=== PATIENT | female | born 1955 | race Caucasian/White ===

== ENCOUNTER → 2022-10-29 | Outpatient (CLI) | payer MEDICARE, BC ==
[2022-10-29 17:28] LABS: INR 0.9 (<1.2); Partial Thromboplastin Time 22.1 sec (22.0-30.0); Prothrombin Time 9.7 sec (9.0-12.0)
[2022-10-29 20:38] LABS: HGB 13.3 d/dL (12.0-15.0); MCH 30.3 pg (27.0-32.0); MCHC 31.7 d/dL (32.0-37.0); MCV 95.7 FL (80.0-97.0); Mean Platelet Volume 9.6 FL (9.5-12.2); NRBC Per 100 WBC 0 X 10*3/uL (0.00-0.01); Platelet Count 270 X 10*3/uL (140-440); RBC 4.39 X 10*6/uL (4.10-5.20); RDW 13.7 % (11.5-14.5)
[2022-10-30 01:52] LABS: ALT 21 U/L (8-44); AST 22 U/L (13-35); Albumin 4.7 d/dL (3.8-4.9); Albumin/Globulin Ratio 2.35 Ratio (1.60-3.17); Alkaline Phosphatase 84 U/L (41-126); BUN/Creat Ratio 16.38 Ratio (12.00-20.00); Blood Urea Nitrogen 13.1 mg/dL (9.0-27.0); Calcium 10.1 mg/dL (8.7-10.3); Carbon Dioxide 27.6 mmol/L (21.6-31.8); Chloride 104 mmol/L (96-109); Glucose 92 mg/dL (70-110); Potassium 4.5 mmol/L (3.5-5.5); Sodium 142 mmol/L (135-145); Total Bilirubin 0.3 mg/dL (0.3-1.2); Total Protein 6.7 d/dL (6.2-8.2)
[2022-10-30 01:54] LABS: Appearance,Urine Clear (Clear); Bilirubin,Urine Negative (Negative); Blood,Urine Negative (Negative); Color,Urine Yellow (Yellow); Ketones,Urine Negative (Negative); Nitrite,Urine Negative (Negative); PH, Urine 5.5; Specific Gravity,Urine 1.007 (1.001-1.030); Urobilinogen,Urine 0.2 E.U./DL
== END | disposition home or self-care (01) ==
LOC: LABPAT 15:44
PROVIDERS: ATTEND Orthopaedic Surgery
DX: Z01.812 Encounter for preprocedural laboratory examination (principal); M17.11 Unilateral primary osteoarthritis, right knee; I49.9 Cardiac arrhythmia, unspecified
CPT/HCPCS: 80053; 81003; 85027; 85610; 85730; 87070; 93005

== ENCOUNTER → 2023-04-08 | Outpatient (CLI) | payer MEDICARE, BC ==
[2023-04-08 15:59] LABS: INR 0.9 (<1.2); Partial Thromboplastin Time 22.2 sec (22.0-30.0); Prothrombin Time 9.9 sec (10.0-12.5)
[2023-04-09 02:45] LABS: ALT 17 U/L (8-44); AST 18 U/L (13-35); Albumin 4.4 g/dL (3.8-4.9); Alkaline Phosphatase 79 U/L (41-126); BUN/Creat Ratio 21.43 Ratio (12.00-20.00); Calcium 9.9 mg/dL (8.7-10.3); Carbon Dioxide 27.9 mmol/L (21.6-31.8); Chloride 102 mmol/L (96-109); Globulin 2.1 g/dL (1.6-3.3); Glucose 89 mg/dL (70-110); Potassium 4.2 mmol/L (3.5-5.5); Sodium 139 mmol/L (135-145); Total Bilirubin <0.2 mg/dL (0.3-1.2); Total Protein 6.5 g/dL (6.2-8.2)
[2023-04-09 02:49] LABS: HCT 39.5 % (37.2-46.3); HGB 12.7 g/dL (12.0-15.0); MCH 30.1 pg (27.0-32.0); MCHC 32.2 g/dL (32.0-37.0); MCV 93.6 FL (80.0-97.0); Mean Platelet Volume 9.5 FL (9.5-12.2); NRBC Per 100 WBC 0 X 10*3/uL (0.00-0.01); Platelet Count 241 X 10*3/uL (140-440); RBC 4.22 X 10*6/uL (4.10-5.20); RDW 14.6 % (11.5-14.5); WBC 6.42 X 10*3/uL (4.50-10.00)
== END | disposition home or self-care (01) ==
LOC: LABPAT 14:57
PROVIDERS: ATTEND Orthopaedic Surgery
DX: Z01.812 Encounter for preprocedural laboratory examination (principal); M17.12 Unilateral primary osteoarthritis, left knee; Z22.322 Carrier or suspected carrier of Methicillin resistant Staphylococcus aureus
CPT/HCPCS: 36415; 80053; 85027; 85610; 85730; 87070

== ENCOUNTER 2023-04-28 05:35 | Day surgery (SDC) | payer MEDICARE, BC ==
[~2023-04-28 05:35] MED LIST: TRANEXAMIC 1,000 MG/100ML-NACL 1,000 MG in SALINE 1 100ML.BAG IVPB PRN
[2023-04-28] MEDS: GABAPENTIN 300 MG CAP PO PRN (06:14)
[2023-04-28] MEDS: ACETAMINOPHEN TAB 500 MG TAB PO PRN (06:14)
[2023-04-28] MEDS: MELOXICAM 7.5 MG TAB PO PRN (06:15)
[2023-04-28] MEDS: LACTATED RINGERS 1,000 ML IV ONE (06:20)
[2023-04-28] MEDS: MIDAZOLAM 2 MG/2 ML VIAL IVP ONE ×4 (06:27→06:32)
[2023-04-28] MEDS: ONDANSETRON 4 MG/2 ML VIAL IVP ONE (06:45)
[2023-04-28] MEDS: DEXAMETHASONE SOD PHOSPHATE 4 MG/ML 1 ML VIAL IV ONE (06:45)
[2023-04-28] MEDS ORDERED: HYDROmorphone 0.5 MG/0.5 ML SYRINGE IVP PRN ×3 (07:00→07:13)
--- NOTE | 2023-04-28 07:07 | P.ANPRN ---
Procedure Note - Anesthesia - Nerve Block Performed Left Adductor Canal Infusion Time Out Performed: Yes (0630) Date of Procedure: 04/28/23 Procedure Start Time: 06:34 Procedure Stop Time: 06:49 Location of Patient: PreOp Indication: Acute Post-Operative Pain, Requested by Surgeon Sedation Type: Sedate with meaningful contact maintained Preparation: Sterile Prep, Sterile Dressing Position: Supine Catheter: Indwelling Needle Types: Pajunk Needle Gauge: 18 Ultrasound used to visualize needle placement: Yes Ultrasound used to observe medication spread: Yes Injectate: 0.5% Ropivacaine (see comment for volume) (10 ML of 0.5% ropivacaine mixed with 10 ML of preservative-free normal saline) Blood Aspirated: No Pain Paresthesia on Injection Noted: No Resistance on Injection: Normal Image Stored and Saved: Yes Events: Uneventful and Well Tolerated
--- NOTE | 2023-04-28 07:08 | P.ANPRN ---
Procedure Note - Anesthesia - Nerve Block Performed Left iPack Single Time Out Performed: Yes (0630) Date of Procedure: 04/28/23 Procedure Start Time: 06:34 Procedure Stop Time: 06:49 Location of Patient: PreOp Indication: Acute Post-Operative Pain, Requested by Surgeon Sedation Type: Sedate with meaningful contact maintained Preparation: Sterile Prep Position: Supine Catheter: None Needle Types: Pajunk Needle Gauge: 21 Ultrasound used to visualize needle placement: Yes Ultrasound used to observe medication spread: Yes Injectate: 0.5% Ropivacaine (see comment for volume) (10 ML of 0.5% ropivacaine mixed with 10 ML of preservative-free normal saline) Blood Aspirated: No Pain Paresthesia on Injection Noted: No Resistance on Injection: Normal Image Stored and Saved: Yes Events: Uneventful and Well Tolerated
[2023-04-28] MEDS ORDERED: MAGNESIUM HYDROXIDE 2,400 MG/30 ML CUP PO PRN (07:13)
[2023-04-28] MEDS ORDERED: bisacodyL 10 MG SUPP RECTAL PRN (07:13)
[2023-04-28] MEDS ORDERED: NALOXONE 0.4 MG/ML 1 ML VIAL IV PRN (07:13)
[2023-04-28] MEDS ORDERED: NA PHOS,M-B/NA PHOS,DI-BA 133 ML ENEMA RECTAL PRN (07:13)
[2023-04-28] MEDS ORDERED: PROPOFOL 10 MG/ML 20 ML VIAL IV ONE (07:24)
[2023-04-28] MEDS ORDERED: DEXAMETHASONE SOD PHOSPHATE 4 MG/ML 1 ML VIAL ONE (07:24)
[2023-04-28] MEDS ORDERED: SODIUM CHLORIDE 0.9% (PF) 10 ML VIAL ONE (07:24)
[2023-04-28] MEDS ORDERED: TRANEXAMIC 1,000 MG/100ML-NACL PREMIX BAG ONE (07:24)
[2023-04-28] MEDS ORDERED: ROPIVACAINE 5 MG/ML 30 ML VIAL ONE (07:24)
[2023-04-28] MEDS ORDERED: fentaNYL (PF) 50 MCG/ML 2 ML AMP ONE (07:24)
[2023-04-28] MEDS: ceFAZolin 1,000 MG in SODIUM CHLORIDE 0.9% 1,000 ML IRRIGATION ONE (07:29)
--- NOTE | 2023-04-28 08:42 | P.OP ---
Date of Procedure: 04/28/23 Preoperative Diagnosis: Severe osteoarthritis left knee Postoperative Diagnosis: Severe osteoarthritis left knee Procedure(s) Performed: Left total knee arthroplasty Implants: [employer] Journey II CR Oxinium cruciate retaining femoral component size 5, left [employer] Journey nonporous tibial baseplate size 3, left [employer] Journey II, XLPE CR articular insert, size 9 mm, Size 3-4, left [employer] Journey Zoe II resurfacing patellar component, oval, 29 mm All components were cemented using Palacos R bone cement The articulation is Oxinium on polyethylene Anesthesia: spinal Surgeon: Rey Chacon Ticket Agent #1: Mady Ramirez Estimated Blood Loss (ml): 50 Pathology: none sent Condition: stable Disposition: PACU Indications for Procedure: The patient's knee is end-stage, and conservative management has failed. The operation of knee replacement has been discussed at length in the office, as well as potential risks and complications. These are inclusive of, but not limited to: Infection, bleeding, scarring, discomfort, stiffness, blood vessel and nerve damage, need for further surgery, failure to relieve symptoms, persistence, recurrence, or worsening of problems, loosening, dislocation, wear, blood clot, pulmonary embolism, , gait dysfunction, stiffness, and other risks as discussed in the office. Patient elects to proceed and the consent form has been signed. Operative Findings: The operative findings are consistent with severe osteoarthritis of the left knee Description of Procedure: The patient was seen in the preoperative area, the consent was reviewed and the operative site was marked with a skin marker. The patient verified the procedure and the operative site. An adductor canal pain catheter and an iPACK block were placed by anesthesia in the preoperative area. The patient was then brought to the operating room and positioned on the operating room table in the supine position. Preoperative antibiotics and a gram of tranexamic acid were given intravenously. A spinal anesthetic was administered by the anesthesia department. Care was taken to make sure that all pressure points were a dequately padded. A tourniquet was placed on the upper thigh and the lower extremity was prepped with ChloraPrep and draped in usual sterile fashion. A universal time-out was then performed which confirmed the patient's name, surgical site, ALLERGIES, and consent. The lower extremity was then exsanguinated and tourniquet was inflated to 250 mmHg. A standard anterior midline approach to the knee was performed. The skin and subcutaneous tissue were sharply dissected down to the patellar tendon. A medial parapatellar arthrotomy was then performed. The knee was then extended, the patellar was everted, and the knee was flexed. The infra-patellar fat pad was removed in order to enhance exposure. The anterior horns of both menisci were excised, and a release was performed to the posterior medial aspect of the knee. On gross visual inspection, there was complete loss of articular cartilage in the medial and patellofemoral joint spaces. There was also significant cartilage damage in the lateral compartment. There were multiple periarticular osteophytes globally about the knee which were then removed with a Ronguer. The femoral canal was then opened with the 9.5 mm intramedullary drill. The 8 mm intramedullary millie was then inserted into the femoral canal with the distal femoral cutting guide set for 5 of valgus. The distal femoral cutting block was then pinned in place. The intramedullary millie was then removed, and the distal femur was then cut. The cutting block was then removed and the cut was checked for symmetry. The resected bone was then measured to confirm the appropriate distal femoral resection. Next, the sizing guide was then placed and set for 3 external rotation based off of the epicondylar axis and [place]'s line. Pins were then placed and the drill holes, and the femur was sized with the sizing stylus. The pins were then removed, and the sizing guide was then removed. The spikes of the appropriate size femoral block was then placed into the predrilled holes, and malleted into place. Two 45 mm pins were then placed into the fixation holes on the cutting block. An marina wing was then used to ensure there would be no notching with the anterior cut. The anterior condyles were cut without notching. The anterior chord cut was then performed, followed by the posterior cut, posterior chamfer cut, and the anterior chamfer cut. The collateral ligaments were protected during the entire process. The cutting block was then removed. Any remaining bone and osteophytes were removed from the femur with a Ronguer. Attention was then directed to the tibia. The remaining ACL was removed with a Ronguer, and the tibia was then gently subluxed forward with a large bent knee retractor. Any remaining menisci were excised. The posterior lateral corner was cauterized in order to coagulate the lateral geniculate artery. The extra medullary tibial cutting guide was then placed, set for the appropriate rotation, slope, and depth of resection. The proximal tibia cutting guide was then pinned in place. Proximal tibia was then cut and sized. A curved osteotome was then used to remove any posterior osteophytes from the distal femu r. The femoral trial was placed. A narrow saw blade was then used to remove the anterior intracondylar femoral bone. The CR notch trial was then placed. The tibial trial was placed with the appropriate-sized insert. The knee was able to fully extend and flex to 130 and was stable throughout all range of motion. The knee was then extended and the patella was everted. Patella was then measu red, and then using an osteotomy guide, the patella was cut at the appropriate level. The patellar component was sized. The patellar drill guide was placed and the patella was drilled. The patella trial was then placed. The knee was then taken through range of motion with the patella trial and the patella tracked normally using the no thumbs technique. The patella trial was then removed. The knee was then flexed and lug holes were drilled through the femoral trial and the femoral trial was then removed. The tibial was then re- exposed, and the tibial broach guide was then pinned in place after it was set for the appropriate rotation to allow for the most coverage without overhang. The tibia was then reamed and broached. The femoral canal was plugged with autologous bone. The cut surfaces of bone were then irrigated with pulsatile lavage. The knee was also irrigated with Irrisept solution. The components were then opened, the cement was mixed. Cement was placed on the backside of the femoral, tibial, and patellar components. Cement was then applied to the tibial surface and pressurized into the surface using finger pressurization technique. The tibial component was then applied and excess cement was removed after it was impacted securely noted to be flush with the cut surface. In similar fashion, the cement was applied to the cut femoral surface, pressurized and using finger pressurization the component was impacted in place. Excess cement was removed. The polyethylene spacer was then implanted and locked into position. Patellar component was then applied in a similar technique and the patellar clamp was used to hold patella in place while the cement hardened. The knee was held in full extension while the cement hardened. Once the cement had fully hardened, the knee was reinspected. Any other cement extrusion was removed the final range of motion testing showed range of motion from 0-130 with excellent stability, both medial and laterally and appropriate alignment of the leg. Patella tracked normally. After the cemented hardened, the tourniquet was released and hemostasis was obtained. A second gram of transexamic acid was given intravenously. The knee was again irrigated. The knee was again taken through range of motion and found to be stable throughout all range of motion of 0-130, and the patella tracked normally. The fascia was then closed with 0 Vicryl followed by #2 strata fix suture. The subcutaneous tissue was closed with 3-0 Vicryl and 3-0 strata fix. Exofin glue was used for the skin and placed with the knee in flexion. After the glue had dried, and Optafoam silver impregnated dressing was applied. A lightly compressive dressing was applied using web roll and [place]an[place] wrap. Patient was then transferred to the stretcher and taken to recovery room in stable condition. Sponge and needle counts were correct. The dental hygiene administrative assistant ALBERTO Bloom was required due the complexity surgery and the need for a skilled neurosurgical nurse practitioner. She assisted in positioning, draping, retraction, and closure of the wound.
[2023-04-28] MEDS: ROPIVACAINE 1,100 MG, SODIUM CHLORIDE 0.9% 500 ML 330 ML, EMPTY PAIN BALL 1 EACH MISCELLANE PRN (09:32)
--- NOTE | 2023-04-28 10:16 | XR ---
EXAMINATION TYPE: XR knee limited LT DATE OF EXAM: 04/28/2023 COMPARISON: None HISTORY: Postop left knee TECHNIQUE: 2 view left knee FINDINGS: Tibial femoral component 7 place. No acute fractures are evident. Postsurgical soft tissue changes are evident. IMPRESSION: 1. No acute fractures post left knee replacement.
[2023-04-28] MEDS: HYDROcodone/APAP 7.5-325MG 1 EACH TAB PO PRN ×2 (11:41→18:17)
[2023-04-28] MEDS: LACTATED RINGERS 1,000 ML IV SCH (11:49)
[2023-04-28] MEDS ORDERED: ALPRAZolam 0.5 MG TAB PO PRN (12:02)
[2023-04-28] MEDS: ONDANSETRON 4 MG/2 ML VIAL IVP PRN (12:51)
[2023-04-28] MEDS: SODIUM CHLORIDE 0.9% 1,000 ML IV SCH (12:51)
[2023-04-28] MEDS: HYDROmorphone 0.5 MG/0.5 ML SYRINGE IVP PRN (15:09)
--- NOTE | 2023-04-28 15:31 | P.CONS ---
History of Present Illness - Reason for Consult Consult date: 04/28/23 Medical management Requesting physician: Rey Chacon - Chief Complaint Knee surgery - History of Present Illness Very pleasant 67-year-old patient who follows with Dr. Welsh. progressive arthritis especially of the knees. outpatient failed conservative treatment including pain medications. undergone left total knee arthroplasty. Postprocedure no nausea vomiting. Some pain at operative site. Daughter is at bedside. No chest pain or shortness of breath. Review of systems: GEN.: None EYES: None HEENT: None NECK: None RESPIRATORY: None CARDIOVASCULAR: None GASTROINTESTINAL: None GENITOURINARY: None MUSCULOSKELETAL: Joint pains LYMPHATICS: None HEMATOLOGICAL: None PSYCHIATRY: None NEUROLOGICAL: None Past medical history to include: Arthritis. Anxiety. Social history: Lives with her . Takes care of him as he has Parkinson's. 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 Physical examination: VITAL SIGNS: 97.7, 84, 17, 105/60, 93% GENERAL: BMI 29.1, reclining in bed EYES: Pupils equal. Conjunctiva normal. HEENT: External appearance of nose and ears normal, oral cavity grossly normal. NECK: JVD not raised; masses not palpable. HEART: First and second heart sounds are normal; no edema. LUNGS: Respiratory rate normal; clear to auscultation. ABDOMEN: Soft, nontender, liver spleen not palpable, no masses palpable. PSYCH: Alert and oriented x3; mood and affect normal. MUSCULOSKELETAL:No Clubbing/cyanosis;muscles-grossly intact. Evidence of OA in multiple joints. Dressing over the left knee. NEUROLOGICAL: Cranial nerves grossly intact; no facial asymmetry, power and sensation grossly intact. LYMPHATICS: No lymph nodes palpable in the axilla and neck INVESTIGATIONS, reviewed in the clinical context: April 08, 2023: White count 6.4 hemoglobin 12.7 platelets 241 potassium 4.2 creatinine 0.7 Assessment and plan: -Right total knee arthroplasty Pain control. Aspirin for DVT prophylaxis -Primary osteoarthritis Tylenol as needed -Anxiety not otherwise specified Xanax when necessary Care was discussed with the patient. Questions answered. Thank you Dr. Chacon Past Medical History Past Medical History: Osteoarthritis (OA) Additional Past Medical History / Comment(s): IBS History of Any Multi-Drug Resistant Organisms: None Reported Past Surgical History: Adenoidectomy, Section, Joint Replacement, Tonsillectomy Additional Past Surgical History / Comment(s): CTR bilaterally, rt knee replaced Past Anesthesia/Blood Transfusion Reactions: No Reported Reaction Additional Past Anesthesia/Blood Transfusion Reaction / Comm: no blood transfusions. Past Psychological History: Anxiety Smoking Status: Never smoker Past Alcohol Use History: None Reported Past Drug Use History: None Reported - Past Family History Father Additional Family Medical History / Comment(s): pulmonary fibrosis, blood clot unsure where. Mother Family Medical History: COPD Medications and Allergies Home Medications Medication Instructions Recorded Confirmed Type ALPRAZolam [Xanax] 0.5 mg PO DAILY PRN 11/19/22 04/28/23 History Ascorbic Acid [Vitamin C] 1,000 mg PO DAILY 11/19/22 04/28/23 History Celecoxib [CeleBREX] 200 mg PO DAILY 11/19/22 04/28/23 History Cyanocobalamin [Vitamin B-12] 500 mcg PO DAILY 11/19/22 04/28/23 History L.acidoph,Paracasei, B.lactis 1 each PO DAILY 11/19/22 04/28/23 History [Probiotic] Magnesium Oxide [Mag-Ox] 400 mg PO DAILY 11/19/22 04/28/23 History Multivit with Calcium,Iron,Min 1 each PO DAILY 11/19/22 04/28/23 History [Women's Multivitamin] Zinc Gluconate [Zinc] 50 mg PO DAILY 11/19/22 04/28/23 History traMADol HCL 50 mg PO BID PRN 11/19/22 04/28/23 History Aspirin 325 mg PO BID #60 tab 04/28/23 Rx HYDROcodone/APAP 7.5-325MG [[place] 1 - 2 tab PO Q6H PRN #32 tab 04/28/23 Rx 7.5-325] Sennosides [Senokot] 2 tab PO DAILY PRN #60 tablet 04/28/23 Rx Allergies Allergy/AdvReac Type Severity Reaction Status Date / Time hydrocodone [From Vicodin] AdvReac Hallucinati Verified 04/28/23 06:06 ons Physical Exam Vitals: Vital Signs Temp Pulse Pulse Resp BP Pulse Ox 04/28/23 13:35 97.7 F 84 17 105/60 93 L 04/28/23 12:00 85 147/91 94 L 04/28/23 11:45 94 127/83 94 L 04/28/23 11:25 79 123/83 92 L 04/28/23 11:10 98.0 F 78 18 126/76 93 L 04/28/23 11:02 63 16 114/65 98 04/28/23 10:45 72 16 111/63 97 04/28/23 10:30 67 16 114/63 97 04/28/23 10:15 67 16 117/64 97 04/28/23 10:00 65 16 120/57 97 04/28/23 09:46 60 16 128/61 97 04/28/23 09:32 60 14 122/68 97 04/28/23 09:16 72 12 117/70 97 04/28/23 09:09 98.3 F 68 12 125/69 98 04/28/23 06:50 69 14 139/73 100 04/28/23 06:15 97.0 F L 82 14 179/83 98 Intake and Output 04/28/23 04/28/23 04/28/23 06:59 14:59 22:59 Intake Total 200 651 Output Total 50 Balance 200 601 Intake: IV 200 651 Output: Estimated Blood Loss 50 Other: Weight 74.4 kg 74.4 kg
[2023-04-28 21:25] VITALS: RESP 18
[2023-04-28] MEDS: ASPIRIN 325 MG TAB PO SCH (21:47)
[2023-04-28] MEDS: SENNOSIDES-DOCUSATE SODIUM 1 EACH TAB PO SCH (21:47)
--- NOTE | 2023-04-29 07:05 | P.PN ---
Progress Note - Text Progress Note Date: 04/29/23 Post op day#1 Adequate pain control. No complication from acute PO pain control.
[2023-04-29 08:36] LABS: Basophils # (A) 0.03 X 10*3/uL (0.00-0.10); Basophils % (A) 0.3 %; Eosinophils # (A) 0.06 X 10*3/uL (0.04-0.35); Eosinophils % (A) 0.6 %; HCT 31.6 % (37.2-46.3); HGB 10.1 g/dL (12.0-15.0); Lymphocytes # (A) 1.57 X 10*3/uL (0.90-5.00); Lymphocytes % (A) 16.6 %; MCH 29.9 pg (27.0-32.0); MCV 93.5 FL (80.0-97.0); Mean Platelet Volume 9.5 FL (9.5-12.2); Monocytes # (A) 0.92 X 10*3/uL (0.20-1.00); Monocytes % (A) 9.7 %; NRBC Per 100 WBC 0 X 10*3/uL (0.00-0.01); Neutrophils # (A) 6.83 X 10*3/uL (1.80-7.70); Neutrophils % (A) 72.5 %; Platelet Count 196 X 10*3/uL (140-440); RBC 3.38 X 10*6/uL (4.10-5.20); WBC 9.44 X 10*3/uL (4.50-10.00)
[2023-04-29 08:46] VITALS: BP 101/60; PULSE 83; TEMP 98.2
[2023-04-29] MEDS: ASCORBIC ACID 500 MG TAB PO SCH (09:18)
[2023-04-29] MEDS: MULTIVITAMINS, THERA 1 EACH TAB PO SCH (09:18)
[2023-04-29] MEDS: LACTOBACILLUS ACIDOPHILUS/PECT 1 EACH CAPSULE PO SCH (09:18)
[2023-04-29] MEDS: MAGNESIUM OXIDE 400 MG TAB PO SCH (09:18)
[2023-04-29] MEDS: CYANOCOBALAMIN 500 MCG TAB PO SCH (09:18)
--- NOTE | 2023-04-29 09:53 | P.DS ---
Providers Expected date of discharge: 04/29/23 Attending physician: Rey Chacon Consults: 04/28/23 07:13 Consult Physician Routine Consulting Provider: Je Gordon Consult Reason/Comments: medical management Do you want consulting provider notified?: Yes Primary care physician: Macario Welsh - Discharge Diagnosis(es) (1) Osteoarthritis of left knee Current Visit: Yes Status: Acute (2) S/P total knee arthroplasty Current Visit: Yes Status: Acute Hospital Course: This is a 67-year-old female with known history of degenerative arthritis of the left knee. The patient presented for evaluation as an outpatient. After discussion and consideration patient elects to proceed with total knee arthroplasty. The patient is seen preoperatively by Dr. Chacon and medically cleared for surgery by their primary care physician. Patient is admitted to [facility] on 04/28/2023 for total knee arthroplasty. The procedure is performed without complication or sequelae. The patient is doing well postoperatively. Labs and vital signs are stable on day of discharge. On day of discharge patient's knee incision is healing well. There is minimal erythema. There is no drainage noted at this time. There is minimal soft tissue swelling to the knee. Patient has full foot and ankle motion without difficulty or pain. Calf is soft and nontender to palpation. Neurovascular status to the left lower extremity is intact. Patient is discharged home in good condition. Please see med rec for accurate list of home medications. Plan - Discharge Summary Discharge Rx Participant: Yes New Discharge Prescriptions: New HYDROcodone/APAP 7.5-325MG [[place] 7.5-325] 1 - 2 tab PO Q6H PRN #32 tab PRN Reason: Pain Aspirin 325 mg PO BID #60 tab Sennosides [Senokot] 2 tab PO DAILY PRN #60 tablet PRN Reason: Constipation No Action traMADol HCL 50 mg PO BID PRN PRN Reason: Pain Celecoxib [CeleBREX] 200 mg PO DAILY Magnesium Oxide [Mag-Ox] 400 mg PO DAILY Multivit with Calcium,Iron,Min [Women's Multivitamin] 1 each PO DAILY L.acidoph,Paracasei, B.lactis [Probiotic] 1 each PO DAILY Zinc Gluconate [Zinc] 50 mg PO DAILY ALPRAZolam [Xanax] 0.5 mg PO DAILY PRN PRN Reason: Anxiety Cyanocobalamin [Vitamin B-12] 500 mcg PO DAILY Ascorbic Acid [Vitamin C] 1,000 mg PO DAILY Discharge Medication List ALPRAZolam [Xanax] 0.5 mg PO DAILY PRN 11/19/22 [History] Ascorbic Acid [Vitamin C] 1,000 mg PO DAILY 11/19/22 [History] Celecoxib [CeleBREX] 200 mg PO DAILY 11/19/22 [History] Cyanocobalamin [Vitamin B-12] 500 mcg PO DAILY 11/19/22 [History] L.acidoph,Paracasei, B.lactis [Probiotic] 1 each PO DAILY 11/19/22 [History] Magnesium Oxide [Mag-Ox] 400 mg PO DAILY 11/19/22 [History] Multivit with Calcium,Iron,Min [Women's Multivitamin] 1 each PO DAILY 11/19/22 [History] Zinc Gluconate [Zinc] 50 mg PO DAILY 11/19/22 [History] traMADol HCL 50 mg PO BID PRN 11/19/22 [History] Aspirin 325 mg PO BID #60 tab 04/28/23 [Rx] HYDROcodone/APAP 7.5-325MG [[place] 7.5-325] 1 - 2 tab PO Q6H PRN #32 tab 04/28/23 [Rx] Sennosides [Senokot] 2 tab PO DAILY PRN #60 tablet 04/28/23 [Rx] Follow up Appointment(s)/Referral(s): Rey Chacon DO [Doctor of Osteopathic Medicine] - 2 Weeks Activity/Diet/Wound Care/Special Instructions: Weightbearing as tolerated with a walker. CPM 5-6h daily as tolerated. Leave dressing intact. Dressing may be removed by home care nurse or by patient in 7 days. Then change dressing twice daily until follow up. May shower with initial dressing intact and after removal. If dressing become saturated, please remove. Recommend use of compression stockings daily until follow up to help prevent swelling and blood clots. May remove at night before sleeping. Please take aspirin 325mg twice daily for 30 days to prevent blood clots. Please follow up with [facility] and call with any questions or concerns, . Discharge Disposition: HOME WITH HOME HEALTH SERVICES
--- NOTE | 2023-04-29 17:14 | P.PN ---
Progress Note - Text Progress Note Date: 04/29/23 - Chief Complaint Knee surgery - History of Present Illness Very pleasant 67-year-old patient who follows with Dr. Welsh. progressive arthritis especially of the knees. outpatient failed conservative treatment including pain medications. undergone left total knee arthroplasty. Postprocedure no nausea vomiting. Some pain at operative site. Daughter is at bedside. No chest pain or shortness of breath. April 29: Pain controlled. Did ambulate. No nausea vomiting. Did tolerate a diet. Drop in hemoglobin. Ferrous sulfate added. Discussed. Medications reviewed Past medical history to include: Arthritis. Anxiety. Social history: Lives with her . Takes care of him as he has Parkinson's. 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 Physical examination: VITAL SIGNS: 98.2, 83, 18, 101/60, 96% room air GENERAL: Sitting up, comfortable EYES: Pupils equal. Conjunctiva normal. HEENT: External appearance of nose and ears normal, oral cavity grossly normal. NECK: JVD not raised; masses not palpable. HEART: First and second heart sounds are normal; no edema. LUNGS: Respiratory rate normal; clear to auscultation. ABDOMEN: Soft, nontender, liver spleen not palpable, no masses palpable. PSYCH: Alert and oriented x3; mood and affect normal. MUSCULOSKELETAL:No Clubbing/cyanosis;muscles-grossly intact. Evidence of OA in multiple joints. Dressing over the left knee. INVESTIGATIONS, reviewed in the clinical context: April 29: Hemoglobin 10.1 Previous labs April 08, 2023: White count 6.4 hemoglobin 12.7 platelets 241 potassium 4.2 creatinine 0.7 Assessment and plan: -Right total knee arthroplasty Pain control. Aspirin for DVT prophylaxis -Acute postprocedure blood loss anemia expected from surgery Ferrous sulfate 325 mg twice daily -Primary osteoarthritis Tylenol as needed -Anxiety not otherwise specified Xanax when necessary Discussed. Ferrous sulfate added. Follow-up with PCP upon discharge. Thank you Dr. Chacon Past Medical History Past Medical History: Osteoarthritis (OA) Additional Past Medical History / Comment(s): IBS History of Any Multi-Drug Resistant Organisms: None Reported Past Surgical History: Adenoidectomy, Section, Joint Replacement, Tonsillectomy Additional Past Surgical History / Comment(s): CTR bilaterally, rt knee replaced Past Anesthesia/Blood Transfusion Reactions: No Reported Reaction Additional Past Anesthesia/Blood Transfusion Reaction / Comm: no blood transfusions. Past Psychological History: Anxiety Smoking Status: Never smoker Past Alcohol Use History: None Reported Past Drug Use History: None Reported
== END 2023-04-29 13:49 | disposition home health service (06) ==
LOC: OR 05:35 → 4SSUR 09:09 → OR 04-29 13:49
PROVIDERS: ATTEND Orthopaedic Surgery
DX: M17.12 Unilateral primary osteoarthritis, left knee (principal); G89.29 Other chronic pain; K58.9 Irritable bowel syndrome, unspecified; F41.9 Anxiety disorder, unspecified; Z79.1 Long term (current) use of non-steroidal anti-inflammatories (NSAID); Z79.82 Long term (current) use of aspirin; Z88.5 Allergy status to narcotic agent; Z79.899 Other long term (current) drug therapy
CPT/HCPCS: 97162; 64999; 64448; 85025; 73560; 27447; C1713; C1776; C1751; J2250; J1100; J0690 ×3; J2405; J2795; J1170